=== PATIENT | male | born 1970 | race African-American/Black ===

== ENCOUNTER 2018-02-20 21:03 | Emergency (ER) | payer MEDICAID ==
[~2018-02-20] VITALS: Ht 177.8 cm; Wt 72.6 kg
[~2018-02-20 21:03] MED LIST: ATOR10TA; GLIP2.5T28; GLYB1.25
[2018-02-20 21:26] VITALS: BP 117/79
== END 2018-02-20 23:41 | disposition home or self-care (01) ==
LOC: ER 21:03
DX: S16.1XXA Strain of muscle, fascia and tendon at neck level, initial encounter (principal); E11.9 Type 2 diabetes mellitus without complications; Z79.899 Other long term (current) drug therapy; Z79.84 Long term (current) use of oral hypoglycemic drugs; X58.XXXA Exposure to other specified factors, initial encounter; Y93.89 Activity, other specified; Y99.8 Other external cause status; Y92.89 Other specified places as the place of occurrence of the external cause
CPT/HCPCS: 72040

== ENCOUNTER 2018-03-26 01:06 | Emergency (ER) | payer MEDICAID ==
[~2018-03-26] VITALS: Ht 177.8 cm; Wt 63.5 kg
[2018-03-26] MEDS ORDERED: HYDROCORTISONE ACET 25 MG RECTAL SUPP PR ONE (01:45)
[2018-03-26 01:50] VITALS: BP 101/68
[2018-03-26 02:16] LABS: Basophils # (auto) 0 uL; Basophils % (auto) 0.9 % (0.0-2.0); Eosinophils # (auto) 0.1 uL; Hematocrit 45.8 % (41.0-53.0); Hemoglobin 15.9 g/dL (13.5-17.5); Lymphocytes # (auto) 1.6 uL; Lymphocytes % (auto) 43.3 % (10.0-50.0); Mean Corpuscular Hgb Conc. 34.8 g/dL (32.0-36.0); Mean Corpuscular Volume 89.2 fL (80.0-100.0); Monocytes # (auto) 0.2 uL; Monocytes % (auto) 5.9 % (0.0-12.0); Neutrophils # (auto) 1.8 uL; Neutrophils % (auto) 47.9 % (37.0-80.0); Nucleated Red Blood Cells % 1.4 %; Platelet Count (auto) 215 10^3/uL (140-450); Red Blood Cells 5.14 10^6/uL (4.5-5.90); Red Cell Distribution Width 12.9 % (11.8-14.3); White Blood Cell 3.7 10^3/uL (4.4-10.8)
[2018-03-26 02:30] LABS: Urine Bacteria NONE SEEN /hpf (None Seen); Urine Blood Negative /uL (Negative); Urine Specific Gravity 1.035 (1.001-1.035); Urine WBC <1 /hpf (0 - 3)
[2018-03-26 02:32] LABS: Albumin 3.7 g/dL (3.4-5.0); Calcium 8.8 mg/dL (8.5-10.1); Potassium 3.6 mmol/L (3.5-5.1)
[2018-03-26 02:34] LABS: Bilirubin, Total 0.5 mg/dL (0.2-1.0); Total Protein 6.8 g/dL (6.4-8.2)
== END 2018-03-26 03:46 | disposition home or self-care (01) ==
LOC: ER 01:07
DX: K64.9 Unspecified hemorrhoids (principal); E11.9 Type 2 diabetes mellitus without complications; Z79.84 Long term (current) use of oral hypoglycemic drugs
CPT/HCPCS: 36415; 74176; 80053; 81001; 85025

== ENCOUNTER 2021-03-31 19:52 | Emergency (ER) | payer MEDICAID ==
[~2021-03-31] VITALS: Ht 177.8 cm; Wt 77.1 kg
[2021-03-31] MEDS ORDERED: IOHEXOL 350 MG/ML 100ML IJ ONE (20:49)
[2021-03-31 20:52] LABS: Monocytes # (auto) 0.3 10 ^3/uL (0-1.3); Nucleated Red Blood Cells % 0.2 %
[2021-03-31 20:57] LABS: Basophils # (auto) 0 10 ^3/uL (0-0.2); Basophils % (auto) 0.6 % (0.0-2.0); Eosinophils # (auto) 0 10 ^3/uL (0-0.8); Eosinophils % (auto) 0.8 % (0.0-7.0); Hematocrit 47.6 % (41.0-53.0); Hemoglobin 16.5 g/dL (13.5-17.5); Lymphocytes # (auto) 1.6 10 ^3/uL (0.4-5.4); Lymphocytes % (auto) 31.2 % (10.0-50.0); Mean Corpuscular Hemoglobin 30.8 pg (28.0-32.0); Mean Corpuscular Hgb Conc. 34.7 g/dL (32.0-36.0); Mean Corpuscular Volume 88.8 fL (80.0-100.0); Monocytes % (auto) 5.2 % (0.0-12.0); Neutrophils # (auto) 3.3 10 ^3/uL (1.6-8.6); Neutrophils % (auto) 62.2 % (37.0-80.0); Red Blood Cells 5.36 10^6/uL (4.5-5.90); Red Cell Distribution Width 12.4 % (11.8-14.3); White Blood Cell 5.2 10^3/uL (4.4-10.8)
[2021-03-31 21:07] LABS: Albumin 3.6 g/dL (3.4-5.0); Calcium 8.8 mg/dL (8.5-10.1); Magnesium 2.6 mg/dL (1.6-2.6); Potassium 3.9 mmol/L (3.5-5.1)
[2021-03-31 21:13] LABS: BUN/Creatinine Ratio 15.2; Bilirubin, Total 0.6 mg/dL (0.2-1.0); Total Protein 7.3 g/dL (6.4-8.2)
[2021-03-31] MEDS ORDERED: ASPirin 325 MG TAB ONE (23:32)
[2021-04-01 00:17] VITALS: BP 113/65
[2021-04-01] MEDS ORDERED: ASPirin 325 MG TAB PO ONE (00:30)
== END 2021-04-01 00:36 | disposition short-term general hospital (02) ==
LOC: ER 19:57
DX: R29.810 Facial weakness (principal); R07.89 Other chest pain; R51.9 Headache, unspecified; E11.9 Type 2 diabetes mellitus without complications; Z20.822 Contact with and (suspected) exposure to COVID-19
CPT/HCPCS: 36415; 70450; 70496; 70498; 71045; 80053; 83735; 83880; 84484; 85025; 85610; 87426; 93005; 99285; Q9967

== ENCOUNTER 2022-12-10 14:40 | Inpatient (IN) | payer MEDICAID ==
[~2022-12-10] VITALS: Ht 180.3 cm; Wt 73.0 kg
[~2022-12-10 14:40] MED LIST changes: -GLIP2.5T28; +GLIP2.5T9
[2022-12-10] MEDS ORDERED: SODIUM CHLORIDE 0.9% 1,000 ML IV ONE (15:00)
[2022-12-10 15:32] LABS: Basophils # (auto) 0 10 ^3/uL (0-0.2); Eosinophils # (auto) 0 10 ^3/uL (0-0.8); Eosinophils % (auto) 0.6 % (0.0-7.0); Hematocrit 50.5 % (41.0-53.0); Hemoglobin 17.4 g/dL (13.5-17.5); Lymphocytes # (auto) 1.2 10 ^3/uL (0.4-5.4); Lymphocytes % (auto) 29.3 % (10.0-50.0); Mean Corpuscular Hemoglobin 30.8 pg (28.0-32.0); Mean Corpuscular Hgb Conc. 34.4 g/dL (32.0-36.0); Mean Corpuscular Volume 89.4 fL (80.0-100.0); Monocytes # (auto) 0.2 10 ^3/uL (0-1.3); Neutrophils # (auto) 2.8 10 ^3/uL (1.6-8.6); Neutrophils % (auto) 65.1 % (37.0-80.0); Nucleated Red Blood Cells % 0.1 %; Red Blood Cells 5.65 10^6/uL (4.5-5.90); Red Cell Distribution Width 12.5 % (11.8-14.3); White Blood Cell 4.3 10^3/uL (4.4-10.8)
[2022-12-10 15:50] LABS: Base Excess 0.9 mmol/L (-2.0-2.0)
[2022-12-10 15:53] LABS: INR 0.97 (0.9-1.15); Prothrombin Time 10.2 sec (9.3-11.8)
[2022-12-10 15:54] LABS: Albumin 3.9 g/dL (3.4-5.0); Calcium 9.7 mg/dL (8.5-10.1); Potassium 4.1 mmol/L (3.5-5.1)
[2022-12-10 16:05] LABS: BUN/Creatinine Ratio 14.7 (10.0-20.0); Bilirubin, Total 0.7 mg/dL (0.2-1.0); Total Protein 7.2 g/dL (6.4-8.2)
[2022-12-10] MEDS ORDERED: InsuLIN REG 1unit/0.01ml Soln (100units/ml) IV ONE (16:30)
[2022-12-10] MEDS ORDERED: DEXTROSE (50%) 50ML SYRG IV PRN (17:00)
[2022-12-10] MEDS ORDERED: ACETAMINOPHEN 325 MG TAB PO PRN (17:00)
[2022-12-10] MEDS ORDERED: TEMAZEPAM 15 MG CAP PO PRN (17:00)
[2022-12-10 18:00] VITALS: PULSE 78; RESP 12; O2SAT 98
[2022-12-10 19:20] VITALS: PULSE 82; RESP 13; O2SAT 97
[2022-12-10] MEDS: ACCU-CHEK COMFORT CURVE STRIP VI SCH (20:35)
[2022-12-10] MEDS: InsuLIN REG 1unit/0.01ml Soln (100units/ml) SC SCH (20:41)
[2022-12-10 22:00] VITALS: BP 109/68; PULSE 83; RESP 19; TEMP 98.6; O2SAT 97
[2022-12-10] MEDS ORDERED: ATORVASTATIN 20 MG TAB PO SCH (22:00)
[2022-12-11] VITALS (7 sets, daily range): BP systolic 101–126; BP diastolic 63–75; PULSE 70–81; RESP 18–20; TEMP 37; O2SAT 96–99
[2022-12-11] MEDS: InsuLIN REG 1unit/0.01ml Soln (100units/ml) SC SCH ×5 (00:27→15:52)
[2022-12-11] MEDS: ACCU-CHEK COMFORT CURVE STRIP VI SCH ×5 (00:28→15:50)
[2022-12-11 06:42] LABS: BUN/Creatinine Ratio 29.5 (10.0-20.0); Calcium 8.9 mg/dL (8.5-10.1); Potassium 3.8 mmol/L (3.5-5.1)
[2022-12-11] MEDS ORDERED: ENOXAPARIN SOD 40 MG/0.4 ML SYRINGE SC SCH (10:00)
[2022-12-11] MEDS ORDERED: GLIP5TAB12 PO (16:47)
== END 2022-12-11 18:10 | disposition home or self-care (01) | DRG 420 ==
LOC: ER 14:45 → OVERFLOW 16:54 → CENTRAL 21:23
PROVIDERS: ADMIT Nurse Practitioner; ATTEND Internal Medicine
DX: E11.65 Type 2 diabetes mellitus with hyperglycemia (principal); E78.5 Hyperlipidemia, unspecified; H91.90 Unspecified hearing loss, unspecified ear; Z86.73 Personal history of transient ischemic attack (TIA), and cerebral infarction without residual deficits; Z91.128 Patient's intentional underdosing of medication regimen for other reason; Z90.49 Acquired absence of other specified parts of digestive tract; Z79.4 Long term (current) use of insulin
CPT/HCPCS: 36415; 36600; 71045; 80048; 80053; 82805; 82962; 83036; 83690; 84484; 85025; 85610; 96361; 96372; 96374; G0378; J1815

== ENCOUNTER 2023-09-09 00:32 | Emergency (ER) | payer MEDICAID ==
[~2023-09-09] VITALS: Ht 177.8 cm; Wt 63.6 kg
[~2023-09-09 00:32] MED LIST changes: -ATOR10TA; -GLIP2.5T9; +GLIP5TAB21 PO; -GLYB1.25
[2023-09-09] MEDS ORDERED: BENZ100C97 PO (01:53)
[2023-09-09] MEDS: DexAMETHasone SOD PHOS 10MG/1ML VIAL INJ IM ONE (02:07)
[2023-09-09 02:09] VITALS: BP 105/69; PULSE 76; RESP 18; TEMP 98.2; O2SAT 97
== END 2023-09-09 02:12 | disposition home or self-care (01) ==
LOC: ER 00:32
DX: J06.9 Acute upper respiratory infection, unspecified (principal); I10 Essential (primary) hypertension; E11.9 Type 2 diabetes mellitus without complications; E78.5 Hyperlipidemia, unspecified; Z86.73 Personal history of transient ischemic attack (TIA), and cerebral infarction without residual deficits; Z90.49 Acquired absence of other specified parts of digestive tract; Z79.84 Long term (current) use of oral hypoglycemic drugs
CPT/HCPCS: 96372; 99283; J1100